=== PATIENT | male | born 1990 | race African-American/Black ===

== ENCOUNTER 2017-03-29 14:58 | Inpatient (IN) | payer SELFPAY ==
[~2017-03-29] VITALS: Ht 177.8 cm; Wt 77.2 kg
[2017-03-29 16:48] VITALS: BP 125/77
[2017-03-29 16:59] VITALS: BP 125/77
[2017-03-29 19:20] VITALS: BP 108/72
[2017-03-29] MEDS: MORPHINE SULFATE 2 MG/ML DISP.SYRIN. IV PRN ×2 (20:05→22:41)
[2017-03-29 23:20] VITALS: BP 136/75
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
[2017-03-30 03:20] VITALS: BP 105/69
[2017-03-30] MEDS: MORPHINE SULFATE 2 MG/ML DISP.SYRIN. IV PRN (03:37)
--- NOTE | 2017-03-30 06:57 | ACF ---
Admission Forms Criteria PNEUMOTHORAX Clinical Indications for Admission to Inpatient Care (Place 'X' for any and all applicable criteria): Admission for ANY ONE of the following (1),(2): [ ]I. Pneumothorax caused by associated lung disease (eg, COPD, cystic fibrosis, lung cancer, AIDS)(6): [ ]II. Recurrent episode of pneumothorax9 [ ]III. Traumatic pneumothorax (10)(11)(12) [ ]IV. Tension pneumothorax [ ]V. Hypotension [ ]. Respiratory distress [ ]VII. Pneumothorax exacerbating significant comorbidity (eg, heart failure) [X]VIII. Inpatient admission required rather than observation care (see Pneumothorax: Observation Care guideline as appropriate) because of ANY ONE of the following (13)(14) [ ]a) Symptomatic pneumothorax that is progressive or persistent [ ]b) Infection identified (eg, pneumonia) that requires inpatient management [X]c) Severe pain requiring acute inpatient management [ ]d) Supplemental O2 or respiratory therapy for over 24 hrs that are performable only in acute inpatient setting [ ]e) Chest tube placement with active evacuation (eg, suction, drainage) (15) [ ]f) Epidural analgesia [ ]g) Other condition, treatment or monitoring requiring inpatient admission Extended stay beyond goal length of stay may be needed for (24) [ ]a) Secondary pneumothorax [ ]b) Pneumothorax assoc with trauma(eg, multiple fractured ribs) [ ]c) Recurrent episode of primary spontaneous pneumothorax. [ ]d) Older patients [ ]e) Tension pneumothorax [ ]f) Pulmonary edema [ ]g) Persistent air leak The original [facility] content created by [facility] has been revised. The portions of the content which have been revised are identified through the use of italic text or in bold, and [facility] has neither reviewed nor approved the modified material. All other unmodified content is copyright [facility]. Please see references footnoted in the original [facility] edition 2016 Admission Criteria Met?: Yes CHELSEA AVENDAÑO March 30, 2017 06:57
[2017-03-30 07:25] VITALS: BP 132/77
--- NOTE | 2017-03-30 08:27 | PDOC ---
PROGRESS NOTES Chief Complaint Chief Complaint cc: chest pain A/P Spontaneous pneumothorax s/p chest tube placement Nicotine use Plan Pain control CT chest today labs reviewed continue chest tube pulmonology consulted supportive care. History of Present Illness History of Present Illness tube bubbling no fever no chills. Vitals Vitals Vital Signs Date Time Temp Pulse Resp B/P Pulse Ox O2 Delivery O2 Flow Rate FiO2 03/30/17 07:25 98.2 61 18 132/77 100 Room Air 98.2 Physical Exam General: Alert, Oriented X3 Heart: Normal S1, Normal S2 Lungs: Clear Abdomen: Normal bowel sounds Extremities: No clubbing Comment Review of Relevant I have reviewed the following items leah (where applicable) has been applied. Medications Current Medications Morphine Sulfate 2 mg PRN Q2HR PRN IV PAIN Last administered on 03/30/17t 03:37 ; Start 03/29/17 at 19:45 Vitals/I & O Vital Sign - Last 24 Hours 03/29/17 03/29/17 03/29/17 03/29/17 16:48 16:59 17:13 19:20 Temp 98.2 98.2 97.5 98.2 98.2 97.5 Pulse 58 58 68 Resp 16 18 B/P 125/77 125/77 108/72 Pulse Ox 99 99 99 O2 Delivery Room Air Room Air Room Air 03/29/17 03/29/17 03/30/17 03/30/17 20:00 23:20 03:20 07:25 Temp 97.5 98.1 98.2 97.5 98.1 98.2 Pulse 62 59 61 Resp 18 18 18 B/P 136/75 105/69 132/77 Pulse Ox 99 98 100 O2 Delivery Room Air Room Air Room Air Room Air Intake and Output 03/29/17 03/29/17 03/30/17 15:00 23:00 07:00 Intake Total 300 ml Output Total 425 ml 400 ml Balance -425 ml -100 ml CORI CHAPMAN MD March 30, 2017 08:27
[2017-03-30] MEDS ORDERED: ACETAMINOPHEN 325 MG TABLET. PO PRN (08:30)
[2017-03-30] MEDS ORDERED: hydrALAZINE 20 MG/ML VIAL. IVP PRN (08:30)
[2017-03-30] MEDS ORDERED: ONDANSETRON PF 4 MG/2 ML VIAL. IV PRN (08:30)
[2017-03-30] MEDS ORDERED: HYDROcodone/APAP 5/325MG 1 TAB TABLET PO PRN (08:30)
[2017-03-30] MEDS ORDERED: ALBUTEROL SULFATE 2.5 MG/3 ML NEBU. NEB PRN (08:30)
--- NOTE | 2017-03-30 09:28 | PDOC ---
Provider Note Provider Note dictated JOHANA ARDON MD March 30, 2017 09:28
--- NOTE | 2017-03-30 09:46 | RAD ---
Portable chest, 03/30/2017: History: Chest tube placement Comparison is made to an outside study from 03/29/2017 at 1:14 PM. A small caliber right pleural drain evident on the previous study has pulled back and now lies in the soft tissues of the lateral chest wall on the right. There is only a tiny residual right apical pneumothorax. The lungs are well expanded. Minimal right perihilar atelectasis has largely resolved. No new abnormality is seen. IMPRESSION: 1. Malposition of the right pleural drain which can be removed. 2. Stable tiny residual right apical pneumothorax. 3. Resolving mild right parahilar atelectasis.
--- NOTE | 2017-03-30 10:19 | CONS ---
DATE OF CONSULTATION: ATTENDING PHYSICIAN: Dr. Stark. REASON FOR CONSULTATION: Pneumothorax. HISTORY OF PRESENT ILLNESS: The patient is a 27-year-old male with a history of tobacco use and also history of marijuana use. He presented to the hospital after he woke up and had complained of chest pain on the right side. He was seen at [facility] yesterday and was found to have moderate to large right-sided pneumothorax. This was spontaneous. He required a chest tube and was transferred to our facility for further care. I have reviewed chest x-rays from yesterday and post chest tube placement, the pneumothorax substantially resolved and only a tiny right apical was left. He has another chest x-ray ordered today. PAST MEDICAL HISTORY: History of once in the past. No history of prior pneumothorax. PAST SURGICAL HISTORY: None. ALLERGIES: None. FAMILY HISTORY: Diabetes. SOCIAL HISTORY: Smokes cigarettes for the last 3-4 years and marijuana use. REVIEW OF SYSTEMS: As discussed in the history of present illness. MEDICATIONS: Reviewed. PHYSICAL EXAMINATION: VITAL SIGNS: Stable, pulse ox is 100% on room air. NECK: Supple. LUNGS: With clear breath sounds. CARDIOVASCULAR: Regular rate. ABDOMEN: Soft. EXTREMITIES: No pitting edema. He has a right chest tube in place. LABORATORY DATA: Not available for this hospitalization. Chest x-ray reviewed. IMPRESSION: 1. Spontaneous right-sided pneumothorax in a patient who is a smoker and also uses marijuana. Possible apical blebs. 2. Reexpansion of pneumothorax, but still has air leak with yesterday's chest x-ray showing tiny residual right apical pneumothorax. RECOMMENDATIONS: 1. Continue chest tube to suction. 2. Daily chest x-rays. 3. If the chest x-ray does not show reexpansion in a few days, then we will change the chest tube to a large bore. 4. We will consider CT chest as an outpatient to rule out any apical blebs. 5. P.r.n. pain medication. 6. Smoking cessation counseling provided. addend: repeat cxr today showed chest tube is out, PTX almost resolved. repeat cxr in am JOHANA ARDON MD DR: DUSTY/genny JOB#: [id number] / [id number] MTDD
[2017-03-30 11:15] VITALS: BP 116/71
[2017-03-30 14:44] VITALS: BP 147/77
== END 2017-03-30 16:45 | disposition left against medical advice (07) | DRG 201 ==
LOC: 6 SOUTH 16:35
PROVIDERS: ADMIT Internal Medicine; ATTEND Internal Medicine
DX: J93.83 Other pneumothorax (principal); F12.90 Cannabis use, unspecified, uncomplicated; F17.210 Nicotine dependence, cigarettes, uncomplicated; Z71.6 Tobacco abuse counseling; Z83.3 Family history of diabetes mellitus
CPT/HCPCS: 71010; 94250; J2270